=== PATIENT | female | born 1940 | race Caucasian/White ===

== ENCOUNTER 2016-11-18 10:18 | Day surgery (SDC) | payer MEDICARE ==
[~2016-11-18] VITALS: Ht 160 cm; Wt 61.7 kg
[~2016-11-18 10:18] MED LIST: 0.9% Sodium Chloride 1,000 ML IV SCH; BUPR75TA10 PO; CHOL10008 PO; IBUP400T22 PO; OMEP20CA11 PO; PANT20TA2 PO; PREC VG; Sodium Chloride LOK Flush 10 mL Syringe IV PRN; fentaNYL-PF 50 mCg/mL 2 mL Inj IVPUSH PRN
[2016-11-18 10:43] VITALS: BP 109/57; PULSE 54; RESP 12; O2SAT 99
[2016-11-18 12:02] VITALS: BP 99/58; PULSE 56; RESP 16; O2SAT 93
[2016-11-18 12:13] VITALS: BP 101/58; PULSE 52; RESP 16; O2SAT 94
[2016-11-18 12:15] VITALS: BP 104/67; PULSE 56; RESP 16; O2SAT 96
--- NOTE | 2016-11-18 12:53 | ENDO ---
[address] [address] ENDOSCOPY PROCEDURE PATIENT: ROHIT VALERIO : 1940 MR#: [id number] ADMIT: 11/18/2016 JOB ID: [id number] DATE OF PROCEDURE: 11/18/2016 PRIMARY PROVIDER: Shaina Pablo MD PROCEDURE: Esophagogastroduodenoscopy with biopsy and a colonoscopy. INDICATIONS: A 76-year-old female with chronic reflux. She has done much better on 20 mg b.i.d. pantoprazole. 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 EQUIPMENT: GIFH-180J and a PCFH-180 AL SEDATION: 5 mg Versed and 100 mcg fentanyl. COMPLICATIONS: None identified. BOWEL PREPARATION: Fair, adequate exam. PROCEDURE INFORMATION: After the risks and benefits were explained, written and verbal informed consent was obtained. The patient was brought into the endoscopy suite and placed into the left lateral decubitus position. Sedation was achieved using the above-stated medications with the addition of oxygen via nasal cannula. The scope was introduced into the mouth and advanced to the second portion of the duodenum. The scope was slowly withdrawn to carefully examine the mucosa for any defects or lesions. Retroflexed views were accomplished in the stomach. The stomach was decompressed. The scope removed from the patient who tolerated the procedure well. The patient was then turned around. A digital rectal examination accomplished. The patient had absolutely no resting anal sphincter tone. She was already sedated and very difficult to ascertain her squeeze capacity. The scope was introduced into the rectum and advanced under direct visualization to the level of the cecum, as identified by the appendiceal orifice and ileocecal valve. The scope was slowly withdrawn to carefully examine the mucosa for any defects or lesions. Retroflexed views were avoided in the rectum. Multiple direct views were made through the dentate line for exclusion of pathology. The colon was decompressed. The scope removed from the patient who tolerated the procedure well. FINDINGS: 1. Duodenum: The patient had an exceptionally angulated duodenum and I did not advance past the first portion. No stricturing. No mass lesions. No ulcers apparent. 2. Stomach: No significant mucosal pathology appreciated throughout. No ulcers. No mass lesions. No outlet obstruction. Retroflexed views of the LES were rather unremarkable. There was a very diminutive benign appearing polyp biopsied from the midbody of the stomach. 3. Esophagus: The squamocolumnar junction correlated with the top of the gastric folds. The GEJ was at about 36 cm from the incisors and the patient indeed had a subtle small sliding hiatal hernia. No other significant pathology was appreciated throughout. 4. Colon: No significant polyps, mass lesions, or inflammatory features identified throughout. Mild to moderate internal hemorrhoidal cushions were noted on direct views. No other pathology. ENDOSCOPIC DIAGNOSES: 1. Subtle sliding hiatal hernia. 2. Sharply angulated duodenal C-loop. 3. Otherwise visually unremarkable esophagogastroduodenoscopy. 4. Mild to moderate internal hemorrhoids. 5. Anal sphincter hypotension. 6. Diminutive gastric polyp. RECOMMENDATIONS: 1. Await histopathology. 2. Continue anti-reflux regimen for now. 3. If the cough symptoms do not completely subside, then the patient should be considered for further evaluation with 24 hour ambulatory esophageal pH monitoring on antisecretory medication. 4. Continue pantoprazole in that this has improved stool consistency, reducing the amount of fecal incontinence. If stools become a little too firm and difficult to evacuate then I would definitely recommend adding in fiber supplementation. 5. Depending on response to the change in therapy as described above, the patient may wish to consider referral down to [place] to look into the feasibility of artificial anal sphincter procedures. 6. The patient is invited back to GI clinic within the next 6-8 weeks to review symptoms. 7. Surveillance esophagogastroduodenoscopy is not anticipated. Repeat colonoscopy can be considered for 10 years' time (but that places the patient at age 86).
--- NOTE | 2016-11-19 13:27 | PATH ---
SURGICAL PATHOLOGY Attending Physician:Belgica Diop CASE STATUS: Signed Out PATIENT NAME: ROHIT VALERIO PID: [id number] : 1940 DATE COLLECTED:11/18/2016 00:00 SPECIMEN: Stomach, Polyp, Biopsy CLINICAL HISTORY: 1). GASTRIC POLYP FINAL DIAGNOSIS: 1.GASTRIC POLYP: FUNDIC GLAND POLYP, NEGATIVE FOR ATYPIA. Negative for evidence of Helicobacter. Negative for intestinal metaplasia. Negative for dysplasia and malignancy. ICD10 K31.7 GROSS DESCRIPTION: The specimen is received in one formalin filled container labeled with the patient's name, sublabeled "gastric polyp" and consists of a 0.3 x 0.3 x 0.2 CM portion of tissue which is entirely submitted in one cassette. 11/19/2016 [facility] MICRO DESCRIPTION: See diagnosis. ICD-9 CODES: CPT CODES: 1: 82757 Electronically Signed Out Abelino Walsh MD [facility] Pathology [facility] [address], [place] [address] Technical component performed at [facility], [facility] [address], [address]
== END 2016-11-18 23:59 | disposition home or self-care (01) ==
LOC: END 10:18
PROVIDERS: ATTEND Internal Medicine Gastroenterology
DX: Z12.11 Encounter for screening for malignant neoplasm of colon (principal); K64.8 Other hemorrhoids; K62.89 Other specified diseases of anus and rectum; K31.7 Polyp of stomach and duodenum; K44.9 Diaphragmatic hernia without obstruction or gangrene; K21.9 Gastro-esophageal reflux disease without esophagitis; R15.9 Full incontinence of feces; G47.00 Insomnia, unspecified; F33.9 Major depressive disorder, recurrent, unspecified
CPT/HCPCS: 43239; 99153; G0121; G0500; J7030